=== PATIENT | male | born 1995 | race Two or more races ===

== ENCOUNTER 2023-10-16 21:43 | Emergency (ER) | payer MEDICAID, OTHER ==
[~2023-10-16] VITALS: Ht 172.7 cm; Wt 90.1 kg
[2023-10-17] MEDS ORDERED: KETOROLAC TROMETH 60MG/2ML VIAL IM ONE (01:30)
[2023-10-17] MEDS ORDERED: cefTRIAXone SOD 1,000 MG VL IM ONE (01:30)
[2023-10-17] MEDS ORDERED: TETANUS-DIPTH-ACEL PERTUSSIS 0.5ML SYR Tdap IM ONE (01:30)
[2023-10-17] MEDS ORDERED: CEPH500C PO (01:33)
[2023-10-17] MEDS ORDERED: CLIN300C70 PO (01:33)
[2023-10-17] MEDS ORDERED: IBUP-1456 PO (01:33)
[2023-10-17] MEDS ORDERED: LIDOCAINE 1% HCL (LOCAL ANESTH.) INJ 20ML MDV ID ONE (02:15)
[2023-10-17 04:11] VITALS: BP 150/90; PULSE 88; RESP 16; TEMP 98; O2SAT 99
== END 2023-10-17 04:17 | disposition home or self-care (01) ==
LOC: ER 21:43
DX: L03.113 Cellulitis of right upper limb (principal)
CPT/HCPCS: 90471; 90715; 96372; 99284; J0696; J1885; J2001

== ENCOUNTER 2023-10-19 17:51 | Emergency (ER) | payer MEDICAID ==
[~2023-10-19] VITALS: Ht 172.7 cm; Wt 93.5 kg
[~2023-10-19 17:51] MED LIST: CEPH500C PO; CLIN300C70 PO; IBUP-1456 PO
[2023-10-19 20:19] VITALS: BP 135/61; PULSE 75; RESP 18; TEMP 97.5; O2SAT 95
== END 2023-10-19 21:07 | disposition home or self-care (01) ==
LOC: ER 17:51
DX: L03.113 Cellulitis of right upper limb (principal); L02.413 Cutaneous abscess of right upper limb; Z79.899 Other long term (current) drug therapy
CPT/HCPCS: 10060